=== PATIENT | female | born 1975 ===

== ENCOUNTER 2017-04-26 10:34 | Emergency (ER) | payer OTHER ==
[2017-04-26] MEDS ORDERED: Sodium Chloride 0.9% 1,000 ML IV ONE (11:15)
[2017-04-26 11:31] LABS: HCG,QUALITATIVE URINE POSITIVE (NEGATIVE)
[2017-04-26 11:41] LABS: SQUAMOUS EPITHIAL 4 /hpf (0-5); URINE BACTERIA RARE (<OCC); URINE BILIRUBIN NEGATIVE (NEGATIVE); URINE BLOOD NEGATIVE (NEGATIVE); URINE CLARITY Hazy (Clear); URINE COLOR Yellow (YELLOW); URINE GLUCOSE (UA) NORMAL (Normal); URINE LEUKOCYTE ESTERASE 1+ Leu/uL (Negative); URINE NITRATE NEGATIVE (NEGATIVE); URINE PROTEIN NEGATIVE (NEGATIVE); URINE UROBILINOGEN NORMAL mg/dL (0.2-1.0)
[2017-04-26 12:15] LABS: BASO # 0.1 K/uL (0.0-0.2); BASO % 1.1 % (0.0-2.0); EOS # 0.3 K/uL (0.0-0.7); EOS % 3.7 % (0.0-4.0); HEMOGLOBIN 13.1 g/dL (11.0-16.0); LYMPH # 2.6 K/uL (1.0-4.3); LYMPH % 30.9 % (20.0-40.0); MEAN CELL VOLUME 91.5 fL (81.0-99.0); MEAN CORPUSCULAR HEMOGLOBIN 31.3 pg (27.0-31.0); MEAN CORPUSCULAR HGB CONC 34.2 g/dL (33.0-37.0); MEAN PLATELET VOLUME 8.6 fL (7.2-11.7); MONO # 0.7 K/uL (0.0-0.8); MONO % 8.7 % (0.0-10.0); NEUT # 4.6 K/uL (1.8-7.0); NEUT % 55.6 % (50.0-75.0); RBC 4.2 Mil/uL (3.80-5.20); RED CELL DISTRIBUTION WIDTH 13.4 % (11.5-14.5); WHITE BLOOD COUNT 8.3 K/uL (4.8-10.8)
[2017-04-26 12:28] LABS: ALB/GLOB RATIO 1.4 (1.0-2.1); ALBUMIN 4.1 g/dL (3.5-5.0); ALT/SGPT 18 U/L (9-52); AST/SGOT 21 U/L (14-36); BLOOD UREA NITROGEN 16 mg/dL (7-17); CALCIUM 9.3 mg/dl (8.6-10.4); GFR AFRICAN-AMERICAN > 60; GFR NON-AFRICAN AMERICAN > 60
--- NOTE | 2017-04-26 12:37 | C.PDOC ---
History Of Present Illness 41yo female, , 3x uncomplicated c-sections, presents to the ED today with complaints of vaginal bleeding since 4AM today. Patient states she noticed dark brown and reddish spotting and states she now has some pelvic cramping, radiating to her lower back. She states she took a home test last week which was positive. She denies any associated vomiting, diarrhea, fever or dysuria. Patient's LMP was on 03/15/17. Time Seen by Provider: 04/26/17 10:44 Chief Complaint (Nursing): Female Genitourinary History Per: Patient History/Exam Limitations: no limitations Onset/Duration Of Symptoms: Hrs Current Symptoms Are (Timing): Still Present Quality Of Discomfort: Cramping, "Pain" Associated Symptoms: denies: Urinary Symptoms Abnormal Vaginal Bleeding: Yes Last Menstral Period: 03/15/17 : 4 Para: 3 Past Medical History Reviewed: Historical Data, Nursing Documentation, Vital Signs Vital Signs: Last Vital Signs Temp 99.1 F 04/26/17 10:51 Pulse 77 04/26/17 10:51 Resp 20 04/26/17 10:51 BP 123/47 L 04/26/17 10:51 Pulse Ox 98 04/26/17 12:39 - Medical History PMH: No Chronic Diseases Surgical History: (x 3, non complicated) Family History: States: No Known Family Hx - Social History Hx Alcohol Use: No Hx Substance Use: No - Immunization History Hx Tetanus Toxoid Vaccination: No Hx Influenza Vaccination: No Hx Pneumococcal Vaccination: No Review Of Systems Except As Marked, All Systems Reviewed And Found Negative. Constitutional: Negative for: Fever, Chills Gastrointestinal: Negative for: Vomiting, Diarrhea Genitourinary: Positive for: Vaginal Bleeding, Pelvic Pain. Negative for: Dysuria Physical Exam - Physical Exam Appears: Non-toxic Skin: Normal Color Head: Normacephalic Eye(s): bilateral: Normal Inspection Neck: Normal ROM, Supple Chest: Symmetrical Cardiovascular: Rhythm Regular Respiratory: Normal Breath Sounds, No Wheezing Gastrointestinal/Abdominal: Soft, Tenderness (suprapubic tenderness), No Guarding, No Rebound Back: Normal Inspection Extremity: Normal ROM Neurological/Psych: Oriented x3 ED Course And Treatment - Laboratory Results Result Diagrams: 04/26/17 12:07 04/26/17 12:07 O2 Sat by Pulse Oximetry: 98 (RA) Pulse Ox Interpretation: Normal Progress Note: Labs, IV fluids and US transvaginal ordered. 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 DENTRO DE 1 SEMANA BEBER MUCHO LQUIDO USE TYLENOL SEGN SEA NECESARIO REGRESE AL JEROME DE EMERGENCIA SI LOS SNTOMAS EMPEORAN Prescriptions: Acetaminophen [Tylenol 325mg tab] 650 mg PO Q6 PRN #30 tab PRN Reason: pain/fever Instructions: Bleeding With Forms: [employer] (Burkinan) Print Language: INDONESIAN - Clinical Impression Clinical Impression: Vaginal bleeding during - Scribe Statement The provider has reviewed the documentation as recorded by the Scribe (Tamara Tabor) Provider Attestation: All medical record entries made by the Scribe were at my direction and personally dictated by me. I have reviewed the chart and agree that the record accurately reflects my personal performance of the history, physical exam, medical decision making, and the department course for this patient. I have also personally directed, reviewed, and agree with the discharge instructions and disposition.
--- NOTE | 2017-04-26 14:09 | US ---
Indication: , PELVIC PAIN, BLEEDING Comparison: None available. Technique: Real-time transabdominal pelvic ultrasound was performed. In addition a transvaginal pelvic ultrasound was necessary to better depict pelvic anatomy. Findings: Uterus measures approximately 10.1 x 5.2 x 6.2 cm. Anteverted. Cervix length measures approximately 3.1 cm. The gestational sac measures 0.8 cm, too small for gestational age calculation. Question presence of tiny yolk sac, not clearly assessed on the limited submitted views. No evidence of pole. The right ovary measures 2.8 x 1.3 x 2.7 cm. The left ovary measures 4.0 x 2.3 x 3.1 cm and contains 2.2 cm probable corpus luteal cyst. Blood flow was demonstrated to both ovaries. Small fluid adjacent to the uterine fundus. Impression: Evidence of intrauterine gestational sac which is too small for gestational age calculation. Question the presence of a tiny yolk sac which is not clearly assessed on the limited submitted views. No evidence of pole. 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 Probable 2.2 cm left ovarian corpus luteal cyst. Small fluid adjacent to the uterine fundus.
[2017-04-26 14:43] VITALS: BP 136/81; PULSE 72; RESP 18; TEMP 97.8; O2SAT 100
== END 2017-04-26 14:46 | disposition home or self-care (01) ==
LOC: C.ER 10:34
DX: O46.91 Antepartum hemorrhage, unspecified, first trimester (principal); Z3A.00 Weeks of gestation of pregnancy not specified
CPT/HCPCS: 76805; 76817; 80053; 81001; 84702; 84703; 85025; 86850; 86900; 96360; 99285; J7040

== ENCOUNTER 2017-05-22 17:35 | Emergency (ER) | payer OTHER ==
[2017-05-22 17:41] VITALS: O2SAT 99
--- NOTE | 2017-05-22 18:29 | C.PDOC ---
History Of Present Illness 41 y/o female c/o subjective fever, headache, runny nose,cough, and sore throat x 1 day. Pt denies abdominal pain, n/v/d, and vaginal bleeding. Of note, pt is 9 weeks . HPI: Influenza Time Seen by Provider: 05/22/17 18:00 Chief Complaint: Flu-like Symptoms History Per: Patient Exam Limitations: no limitations Onset/Duration Of Symptoms: Days Symptoms include: fever (subjective fever), headache, sore throat, cough. denies: vomiting, diarrhea Risk factors for flu complications: Yes: . No: adult > 65 years, obesity (BMI > 40) Past Medical History Reviewed: Historical Data, Nursing Documentation, Vital Signs Vital Signs: Last Vital Signs Temp 98.4 F 05/22/17 17:37 Pulse 88 05/22/17 17:37 Resp 20 05/22/17 17:37 BP 116/74 05/22/17 17:37 Pulse Ox 99 05/22/17 17:37 Surgical History: (x 3, non complicated) Other Surgeries: Hx of surgeries Family History: States: No Known Family Hx - Social History Hx Alcohol Use: No Hx Substance Use: No - Immunization History Hx Tetanus Toxoid Vaccination: No Hx Influenza Vaccination: No Hx Pneumococcal Vaccination: No Review Of Systems Constitutional: Positive for: Fever (subjective) ENT: Positive for: Nose Discharge (runny nose), Throat Pain Gastrointestinal: Negative for: Nausea, Vomiting, Abdominal Pain, Diarrhea Genitourinary: Negative for: Vaginal Bleeding Neurological: Positive for: Headache Physical Exam - Physical Exam Appears: Non-toxic, Other (uncomfortable) Skin: Warm, Dry Head: Atraumatic, Normacephalic Eye(s): bilateral: Normal Inspection Ear(s): Bilateral: Normal Nose: Discharge (rhinorrhea) Oral Mucosa: Moist Throat: Normal, No Erythema, No Exudate Neck: Supple Cardiovascular: Rhythm Regular, No Murmur Respiratory: No Decreased Breath Sounds, No Accessory Muscle Use, No Rales, No Rhonchi, No Wheezing Gastrointestinal/Abdominal: Soft, No Tenderness Neurological/Psych: Oriented x3, Normal Speech, Normal Motor, Normal Sensation Medical Decision Making Medical Decision Making: Plan: --Tamiflu PO --Tylenol PO 635 pm will d/c pt home with tamiflu and tylenol. f/u pmd - ECG O2 Sat by Pulse Oximetry: 99 (RA) Pulse Ox Interpretation: Normal Disposition Counseled Patient/Family Regarding: Diagnosis, Need For Followup, Rx Given - Disposition Referrals: [facility] at [facility] [Outside] Disposition: HOME/ ROUTINE Disposition Time: 18:37 Condition: GOOD Additional Instructions: Por favor tome Tamiflu segn lo prescrito. Katt mayor cantidad de lquidos Tylenol para la fiebre o el dolor. Hoffman incrementado Denis un seguimiento con lauren mdico en 1-2 hooper. Regrese a la francis de emergencias por un dolor peor, sangrado vaginal, dolor abdominal o cualquier otra inquietud. Please take Tamiflu as prescribed. Drink increased fluids. Tylenol for fever or pain. Increased rest. Follow up with oyur doctor in 1-2 days. Return to ER for worse pain, vaginal bleeding., abdominal pain or any other concerns. 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 - Scribe Statement The provider has reviewed the documentation as recorded by the Scribe Carissa Easley Provider Attestation All medical record entries made by the Scribe were at my direction and personally dictated by me. I have reviewed the chart and agree that the record accurately reflects my personal performance of the history, physical exam, medical decision making, and the department course for this patient. I have also personally directed, reviewed, and agree with the discharge instructions and disposition.
[2017-05-22 18:52] VITALS: BP 118/68; PULSE 86; RESP 18; TEMP 98.5
== END 2017-05-22 18:53 | disposition home or self-care (01) ==
LOC: C.ER 17:35
DX: J11.1 Influenza due to unidentified influenza virus with other respiratory manifestations (principal)

== ENCOUNTER 2017-06-02 11:56 | Emergency (ER) | payer OTHER ==
[2017-06-02 11:59] VITALS: BMI 29.2
[2017-06-02 12:04] VITALS: RESP 18
[2017-06-02 12:56] LABS: BASO # 0.1 K/uL (0.0-0.2); BASO % 0.7 % (0.0-2.0); EOS # 0.3 K/uL (0.0-0.7); EOS % 2.2 % (0.0-4.0); LYMPH # 2.8 K/uL (1.0-4.3); LYMPH % 23.6 % (20.0-40.0); MEAN CELL VOLUME 90.5 fL (81.0-99.0); MEAN CORPUSCULAR HEMOGLOBIN 30.3 pg (27.0-31.0); MEAN CORPUSCULAR HGB CONC 33.5 g/dL (33.0-37.0); MEAN PLATELET VOLUME 7.9 fL (7.2-11.7); MONO # 0.8 K/uL (0.0-0.8); MONO % 6.5 % (0.0-10.0); RBC 3.95 Mil/uL (3.80-5.20)
--- NOTE | 2017-06-02 13:06 | C.PDOC ---
History Of Present Illness 41 year old A0 female, currently 11 weeks , presents to the ED with crampy lower abdominal pain and vaginal spotting. Denies any nausea, vomiting, fevers, or chills. Also complains of lower back pain. Time Seen by Provider: 06/02/17 12:07 Chief Complaint (Nursing): Female Genitourinary History Per: Patient History/Exam Limitations: no limitations Onset/Duration Of Symptoms: Hrs Current Symptoms Are (Timing): Still Present Radiation Of Pain To:: Back Abnormal Vaginal Bleeding: Yes : 4 Para: 3 Miscarriage: 0 Past Medical History Reviewed: Historical Data, Nursing Documentation, Vital Signs Vital Signs: Last Vital Signs Temp 97.8 F 06/02/17 12:01 Pulse 77 06/02/17 12:01 Resp 18 06/02/17 12:01 BP 105/66 06/02/17 12:01 Pulse Ox 99 06/02/17 14:40 Surgical History: (x 3, non complicated) Family History: States: No Known Family Hx - Social History Hx Alcohol Use: No Hx Substance Use: No - Immunization History Hx Tetanus Toxoid Vaccination: No Hx Influenza Vaccination: No Hx Pneumococcal Vaccination: No Review Of Systems Constitutional: Negative for: Fever, Chills Gastrointestinal: Positive for: Abdominal Pain. Negative for: Nausea, Vomiting Genitourinary: Positive for: Vaginal Bleeding Musculoskeletal: Positive for: Back Pain Physical Exam - Physical Exam Appears: Non-toxic, No Acute Distress Skin: Normal Color, Warm, Dry Head: Atraumatic, Normacephalic Eye(s): bilateral: Normal Inspection, PERRL, EOMI Nose: Normal Oral Mucosa: Moist Neck: Normal ROM, Supple Cardiovascular: Rhythm Regular, No Murmur Respiratory: Normal Breath Sounds, No Accessory Muscle Use Gastrointestinal/Abdominal: Soft, Tenderness (Mild suprapubic tenderness), No Guarding, No Rebound Back: No CVA Tenderness, No Vertebral Tenderness, Paraspinal Tenderness (lumbar region) Extremity: Bilateral: Atraumatic, Normal Color And Temperature, Normal ROM Neurological/Psych: Oriented x3, Normal Speech ED Course And Treatment - Laboratory Results Result Diagrams: 06/02/17 12:45 06/02/17 13:19 Lab Interpretation: Normal Urine POC: Positive O2 Sat by Pulse Oximetry: 99 (RA) Pulse Ox Interpretation: Normal - CT Scan/US US Other Rad Studies (CT/US): Read By Radiologist, Radiology Report Reviewed CT/US Interpretation: FINDINGS: UTERUS: Gestational sac: Single intrauterine gestational sac. Measures 1.9 cm compatible with estimated gestational age of 6 weeks, 3 days. Yolk sac: Measures 1.4 cm. pole: Not identified. age (Ultrasound estimated): 6 weeks, 3 days. Beverly-gestational hemorrhage: None. Date of delivery (Ultrasound estimated) : 01/23/2018. Uterus measures 11.4 x 6.5 x 7.4 cm. Anteverted. Normal in size and appearance. CERVIX: Measures 3.1 cm. Long and closed. No cervical abnormality seen. RIGHT OVARY: Measures 3.1 x 1.8 x 3.2 cm. No mass lesion. Normal flow. LEFT OVARY: Measures 2.8 x 2.0 x 2.8 cm. No solid mass. Normal flow. FREE FLUID: None. OTHER FINDINGS: None. IMPRESSION: Intrauterine gestational sac with average age 6 weeks, 3 days. pole not identified. Given absence of 3 week interval growth, findings worrisome for failure of . Clinical correlation is recommended. Progress Note: Labs ordered. On re-evaluation abdomen soft non-tender. Discharged in stable condition Reassessment Condition: Unchanged Medical Decision Making Medical Decision Making: Time: 12:13 Initial Plan: * Beta-HCG quantitative * Blood type and screen * CMP * CBC * Urinalysis * Urine HCG, qualitative * US 1st trimester Disposition Counseled Patient/Family Regarding: Studies Performed, Diagnosis, Need For Followup - Disposition Referrals: [facility] [Outside] [facility] [Outside] Disposition: HOME/ ROUTINE Disposition Time: 14:35 Condition: STABLE Additional Instructions: Return to ED if any increase symptoms Instructions: Bleeding With Forms: [employer] (North Korean) Print Language: DANISH - POA Present On Arrival: None - Clinical Impression Clinical Impression: Vaginal bleeding during - 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 - Scribe Statement The provider has reviewed the documentation as recorded by the Scribe (Freda Kirk) All medical record entries made by the Scribe were at my direction and personally dictated by me. I have reviewed the chart and agree that the record accurately reflects my personal performance of the history, physical exam, medical decision making, and the department course for this patient. I have also personally directed, reviewed, and agree with the discharge instructions and disposition.
--- NOTE | 2017-06-02 13:14 | US ---
PROCEDURE: OB Pelvic Ultrasound HISTORY: bleeding LMP: 03/15/2017 COMPARISON: None available. FINDINGS: UTERUS: Gestational sac: Single intrauterine gestational sac. Measures 1.9 cm compatible with estimated gestational age of 6 weeks, 3 days Yolk sac: Measures 1.4 cm pole: Not identified. age (Ultrasound estimated): 6 weeks, 3 days Beverly-gestational hemorrhage: None. Date of delivery (Ultrasound estimated) : 01/23/2018 Uterus measures 11.4 x 6.5 x 7.4 cm. Anteverted. Normal in size and appearance. CERVIX: Measures 3.1 cm. Long and closed. No cervical abnormality seen. RIGHT OVARY: Measures 3.1 x 1.8 x 3.2 cm. No mass lesion. Normal flow. LEFT OVARY: Measures 2.8 x 2.0 x 2.8 cm. No solid mass. Normal flow. FREE FLUID: None. OTHER FINDINGS: None. IMPRESSION: Intrauterine gestational sac with average age 6 weeks, 3 days. pole not identified. Given absence of 3 week interval growth, findings worrisome for failure of . Clinical correlation is recommended.
[2017-06-02 13:45] LABS: ALB/GLOB RATIO 1.2 (1.0-2.1); ALBUMIN 3.9 g/dL (3.5-5.0); ALT/SGPT 21 U/L (9-52); AST/SGOT 22 U/L (14-36); BLOOD UREA NITROGEN 12 mg/dL (7-17); GFR AFRICAN-AMERICAN > 60; GFR NON-AFRICAN AMERICAN > 60
[2017-06-02 13:51] LABS: HCG,QUALITATIVE URINE POSITIVE (NEGATIVE)
[2017-06-02 13:56] LABS: SQUAMOUS EPITHIAL 3 /hpf (0-5); URINE BILIRUBIN NEGATIVE (NEGATIVE); URINE BLOOD NEGATIVE (NEGATIVE); URINE CLARITY Clear (Clear); URINE COLOR Yellow (YELLOW); URINE GLUCOSE (UA) NORMAL (Normal); URINE LEUKOCYTE ESTERASE TRACE Leu/uL (Negative); URINE PROTEIN NEGATIVE (NEGATIVE); URINE UROBILINOGEN NORMAL mg/dL (0.2-1.0)
[2017-06-03 11:11] VITALS: BP 125/77; PULSE 72; TEMP 97.9; O2SAT 100
== END 2017-06-02 15:45 | disposition home or self-care (01) ==
LOC: C.ER 11:56
DX: O20.9 Hemorrhage in early pregnancy, unspecified (principal); Z3A.11 11 weeks gestation of pregnancy